=== PATIENT | female | born 1945 | race Caucasian/White ===

== ENCOUNTER 2018-09-27 18:14 | Outpatient (CLI) | payer SELFPAY | END 2018-09-27 18:15 | disposition EMS.NT | LOC: EMS 18:14 | PROVIDERS: ATTEND Surgery | DX: R07.89 Other chest pain (principal); M79.606 Pain in leg, unspecified; V43.52XA Car driver injured in collision with other type car in traffic accident, initial encounter; Y92.413 State road as the place of occurrence of the external cause ==

== ENCOUNTER 2022-01-31 17:52 | Outpatient (CLI) | payer MEDICARE, OTHER | END 2022-01-31 17:53 | disposition critical access hospital (66) | LOC: EMS 17:52 | DX: R41.82 Altered mental status, unspecified (principal); R50.9 Fever, unspecified | CPT/HCPCS: A0425; A0429 ==